=== PATIENT | female | born 1945 | race Caucasian/White ===

== ENCOUNTER 2022-01-14 08:52 | Day surgery (SDC) | payer MEDICARE ==
[2022-01-12 14:25] VITALS: BMI 31.8
--- NOTE | 2022-01-14 07:46 | P.GSHP ---
History of Present Illness H&P Date: 01/14/22 CHIEF COMPLAINT: GERD HISTORY OF PRESENT ILLNESS: The patient is a 76-year-old female who presents reports gastroesophageal reflux disease. Upper endoscopy was offered for further evaluation and management. PAST MEDICAL HISTORY: Please see list. PAST SURGICAL HISTORY: Please see list. MEDICATIONS: Please see list. ALLERGIES: Please see list. SOCIAL HISTORY: No illicit drug use FAMILY HISTORY: No reports of Crohn disease or ulcerative colitis. REVIEW OF ORGAN SYSTEMS: CONSTITUTIONAL: No reports of fevers or chills. GI: Denies any blood in stools or constipation. PHYSICAL EXAM: VITAL SIGNS: Stable GENERAL: Well-developed and pleasant in no acute distress. HEENT: No scleral icterus. Extraocular movements grossly intact. Moist buccal mucosa. NECK: Supple without lymphadenopathy. CHEST: Unlabored respirations. Equal bilateral excursions. CARDIOVASCULAR: Regular rate and rhythm. Distal 2+ pulses. ABDOMEN: Soft, nondistended. MUSCULOSKELETAL: No clubbing, cyanosis, or edema. ASSESSMENT: 1. Gastroesophageal reflux disease PLAN: 1. Recommend proceeding with an upper endoscopy Past Medical History Past Medical History: Hypertension, Pulmonary Embolus (PE) Additional Past Medical History / Comment(s): HAS BEEN HAVING PROBLEMS WITH FOOD GETTING STUCK, PE X 2, HAD AN EPISODE OF IRREG. HEART RATE-ON ELIQUIS History of Any Multi-Drug Resistant Organisms: None Reported Past Surgical History: Appendectomy, Bariatric Surgery, Cholecystectomy, Orthopedic Surgery, Tonsillectomy Additional Past Surgical History / Comment(s): thoracotomy for a granuloma REMOVED LOWER LOBE AND 1/2 OF 2ND LOBE REMOVED 1965, , oopherectomy on one side, uterine reconstruction, ruptured cyst in fallopian tube, trapezius repair, GASTRIC BYPASS 8 YEARS AGO, LT JARQUIN TUMOR REMOVED-BENIGN, RT BUNIONECTOMY, COLONOSCOPY, EGD Past Anesthesia/Blood Transfusion Reactions: No Reported Reaction Smoking Status: Never smoker - Past Family History Mother Family Medical History: No Reported History Father Family Medical History: Cancer Sister(s) Family Medical History: Cancer Medications and Allergies Home Medications Medication Instructions Recorded Confirmed Type Carvedilol [Coreg] 50 mg PO BID 03/31/14 01/12/22 History Cetirizine HCl [Zyrtec] 10 mg PO DAILY PRN 03/31/14 01/12/22 History Losartan [Cozaar] 100 mg PO DAILY 03/31/14 01/12/22 History amLODIPine BESYLATE [Norvasc] 10 mg PO DAILY 03/31/14 01/12/22 History ALPRAZolam [Xanax] 1.5 mg PO HS 01/12/22 01/12/22 History Acetaminophen [Tylenol Arthritis] 650 mg PO DAILY PRN 01/12/22 01/12/22 History Apixaban [Eliquis] 5 mg PO BID 01/12/22 01/12/22 History Cholecalciferol [Vitamin D3 (25 50 mcg PO DAILY 01/12/22 01/12/22 History Mcg = 1000 Iu)] Cyanocobalamin (Vitamin B-12) 1,000 mcg PO DAILY 01/12/22 01/12/22 History [Vitamin B-12] Cyclobenzaprine [Flexeril] 10 mg PO DAILY PRN 01/12/22 01/12/22 History Dicyclomine [Bentyl] 10 mg PO DAILY PRN 01/12/22 01/12/22 History Lidocaine 5% Oint [Xylocaine 5% 1 applic TOPICAL DAILY PRN 01/12/22 01/12/22 History Oint] Loperamide [Imodium] 2 mg PO QID PRN 01/12/22 01/12/22 History Pedi Multivit No.25/Folic Acid 1 tab PO DAILY 01/12/22 01/12/22 History [Flintstones Multivit Chew Tab] Simethicone [Gas-X] 125 mg PO DAILY 01/12/22 01/12/22 History Vitamin B Complex 1 each PO DAILY 01/12/22 01/12/22 History buPROPion HCL [Wellbutrin XL] 150 mg PO DAILY 01/12/22 01/12/22 History Allergies Allergy/AdvReac Type Severity Reaction Status Date / Time Iodinated Contrast Media Allergy FACIAL Verified 01/12/22 15:32 SWELLING meperidine HCl [From Demerol] Allergy Anaphylaxis Verified 01/12/22 15:32 erythromycin base AdvReac Nausea & Verified 01/12/22 15:32 [Erythromycin Base] Vomiting & Diarrhea ketorolac tromethamine AdvReac Nausea & Verified 01/12/22 15:32 [From Toradol] Vomiting & Diarrhea levofloxacin [From Levaquin] AdvReac RUPTURED Verified 01/12/22 15:32 ACHILLES TENDON Sulfa (Sulfonamide AdvReac Unknown Verified 01/12/22 15:32 Antibiotics) Childhood
[~2022-01-14 08:52] MED LIST: LACTATED RINGERS 1,000 ML IV SCH
[2022-01-14 09:32] VITALS: TEMP 97.1
[2022-01-14] MEDS ORDERED: LIDOCAINE 1% (10MG/ML) FOR IV START INTRADERMA ONE (09:39)
[2022-01-14] MEDS ORDERED: LIDOCAINE 2% INJ 20 MG/ML (2 ML VIAL) ONE (10:15)
[2022-01-14] MEDS ORDERED: PROPOFOL 10 MG/ML 20 ML VIAL IV ONE (10:15)
--- NOTE | 2022-01-14 10:46 | P.PCN ---
Date of Procedure: 01/14/22 Description of Procedure: PREOPERATIVE DIAGNOSIS: Dysphagia. s/p Osfia-en-y gastric bypass. Nausea with vomiting. Morbid obesity. POSTOPERATIVE DIAGNOSIS: Dysphagia. s/p Sofia-en-y gastric bypass. Nausea with vomiting. Morbid obesity. Gastrojejunal stricture without chronic ulcer without perforation OPERATION: Esophagogastrojejunoscopy with balloon dilatation from 12 to 20 mm. SURGEON: Neelam Hernandez MD ANESTHESIA: MAC. INDICATIONS: The patient is a 76-year-old female who presents with a history of dysphagia, gastric bypass including vomiting. Benefits and risks of the procedure were described. Informed consent was obtained. DESCRIPTION: The patient was brought into the endoscopy suite and laid in the left lateral decubitus position. After a timeout was confirmed, the procedure was initiated. An Olympus gastroscope was passed along the posterior oropharynx down to the distal esophagus where the squamocolumnar junction was unremarkable. The gastric pouch was entered. A gastrojejunal stricture of 12 mm was found as the adult gastroscope was 9.5 mm in size. A LocalMed balloon dilator was placed through the scope. Final insufflation up to 20 mm was performed with a total of 2 minutes. The scope was advanced up to 60 cm from the incisors into the [place] limb. The mucosa of the gastrojejunal anastomosis was intact. No chronic gastrojejunal marginal ulcer was encountered. No full-thickness injury was encountered. The GI tract was desufflated. The patient tolerated the procedure well. FINDINGS: Squamocolumnar junction at 37 cm. LA grade B erosive esophagitis Stricture of approximately 12 mm encountered. No chronic gastrojejunal ulceration encountered. Successful balloon dilatation to 20 mm. Diaphragmatic hiatus at 40 cm. Gastric pouch 3 cm. RECOMMENDATIONS: Start omeprazole of at least 2 weeks. Plan - Discharge Summary Discharge Rx Participant: No New Discharge Prescriptions: New Omeprazole [PriLOSEC] 40 mg PO DAILY #14 cap Continue amLODIPine BESYLATE [Norvasc] 10 mg PO DAILY Losartan [Cozaar] 100 mg PO DAILY Cetirizine HCl [Zyrtec] 10 mg PO DAILY PRN PRN Reason: Allergic Reaction Carvedilol [Coreg] 50 mg PO BID Cyanocobalamin (Vitamin B-12) [Vitamin B-12] 1,000 mcg PO DAILY Lidocaine 5% Oint [Xylocaine 5% Oint] 1 applic TOPICAL DAILY PRN PRN Reason: Pain Pedi Multivit No.25/Folic Acid [Flintstones Multivit Chew Tab] 1 tab PO DAILY Simethicone [Gas-X] 125 mg PO DAILY Vitamin B Complex 1 each PO DAILY Acetaminophen [Tylenol Arthritis] 650 mg PO DAILY PRN PRN Reason: Pain ALPRAZolam [Xanax] 1.5 mg PO HS Apixaban [Eliquis] 5 mg PO BID buPROPion HCL [Wellbutrin XL] 150 mg PO DAILY Cholecalciferol [Vitamin D3 (25 Mcg = 1000 Iu)] 50 mcg PO DAILY Cyclobenzaprine [Flexeril] 10 mg PO DAILY PRN PRN Reason: Spasms Dicyclomine [Bentyl] 10 mg PO DAILY PRN PRN Reason: CRAMPING Loperamide [Imodium] 2 mg PO QID PRN PRN Reason: Diarrhea Discharge Medication List Carvedilol [Coreg] 50 mg PO BID 03/31/14 [History] Cetirizine HCl [Zyrtec] 10 mg PO DAILY PRN 03/31/14 [History] Losartan [Cozaar] 100 mg PO DAILY 03/31/14 [History] amLODIPine BESYLATE [Norvasc] 10 mg PO DAILY 03/31/14 [History] ALPRAZolam [Xanax] 1.5 mg PO HS 01/12/22 [History] Acetaminophen [Tylenol Arthritis] 650 mg PO DAILY PRN 01/12/22 [History] Apixaban [Eliquis] 5 mg PO BID 01/12/22 [History] Cholecalciferol [Vitamin D3 (25 Mcg = 1000 Iu)] 50 mcg PO DAILY 01/12/22 [History] Cyanocobalamin (Vitamin B-12) [Vitamin B-12] 1,000 mcg PO DAILY 01/12/22 [History] Cyclobenzaprine [Flexeril] 10 mg PO DAILY PRN 01/12/22 [History] Dicyclomine [Bentyl] 10 mg PO DAILY PRN 01/12/22 [History] Lidocaine 5% Oint [Xylocaine 5% Oint] 1 applic TOPICAL DAILY PRN 01/12/22 [History] Loperamide [Imodium] 2 mg PO QID PRN 01/12/22 [History] Pedi Multivit No.25/Folic Acid [Flintstones Multivit Chew Tab] 1 tab PO DAILY 01/12/22 [History] Simethicone [Gas-X] 125 mg PO DAILY 01/12/22 [History] Vitamin B Complex 1 each PO DAILY 01/12/22 [History] buPROPion HCL [Wellbutrin XL] 150 mg PO DAILY 01/12/22 [History] Omeprazole [PriLOSEC] 40 mg PO DAILY #14 cap 01/14/22 [Rx] Follow up Appointment(s)/Referral(s): Neelam Hernandez MD [STAFF PHYSICIAN] - 02/02/22 Patient Instructions/Handouts: Esophageal Dilation (DC) Activity/Diet/Wound Care/Special Instructions: START BLOOD THINNER ON TUESDAY TO REDUCE RISK OF BLEEDING Discharge Disposition: HOME SELF-CARE
[2022-01-14 10:48] VITALS: RESP 16
[2022-01-14 11:00] VITALS: BP 137/76; PULSE 57
== END 2022-01-14 11:14 | disposition home or self-care (01) ==
LOC: ORWHC2ENDO 08:52
PROVIDERS: ATTEND Surgery Plastic and Reconstructive Surgery
DX: K95.89 Other complications of other bariatric procedure (principal); K21.00 Gastro-esophageal reflux disease with esophagitis, without bleeding; R13.10 Dysphagia, unspecified; I10 Essential (primary) hypertension; E66.01 Morbid (severe) obesity due to excess calories; Z68.35 Body mass index [BMI] 35.0-35.9, adult; Z98.84 Bariatric surgery status; Z86.711 Personal history of pulmonary embolism; Z79.01 Long term (current) use of anticoagulants; Z79.899 Other long term (current) drug therapy; Z91.041 Radiographic dye allergy status; Z88.1 Allergy status to other antibiotic agents; Z88.5 Allergy status to narcotic agent; Z88.2 Allergy status to sulfonamides; Z90.49 Acquired absence of other specified parts of digestive tract; Z98.890 Other specified postprocedural states; Z90.89 Acquired absence of other organs; Z90.2 Acquired absence of lung [part of]; Z90.721 Acquired absence of ovaries, unilateral; Z80.9 Family history of malignant neoplasm, unspecified
CPT/HCPCS: 43245; J2704; J2001; C1726; 43249

== ENCOUNTER 2022-03-17 07:15 | Day surgery (SDC) | payer MEDICARE ==
[2022-03-16 10:07] VITALS: BMI 33.3
--- NOTE | 2022-03-17 06:16 | P.GSHP ---
History of Present Illness H&P Date: 03/17/22 CHIEF COMPLAINT: Esophageal stricture HISTORY OF PRESENT ILLNESS: The patient is a 76-year-old female who presents reports dysphagia. Upper endoscopy was offered for further evaluation and management. PAST MEDICAL HISTORY: Please see list. PAST SURGICAL HISTORY: Please see list. MEDICATIONS: Please see list. ALLERGIES: Please see list. SOCIAL HISTORY: No illicit drug use FAMILY HISTORY: No reports of Crohn disease or ulcerative colitis. REVIEW OF ORGAN SYSTEMS: CONSTITUTIONAL: No reports of fevers or chills. GI: Denies any blood in stools or constipation. PHYSICAL EXAM: VITAL SIGNS: Stable GENERAL: Well-developed and pleasant in no acute distress. HEENT: No scleral icterus. Extraocular movements grossly intact. Moist buccal mucosa. NECK: Supple without lymphadenopathy. CHEST: Unlabored respirations. Equal bilateral excursions. CARDIOVASCULAR: Regular rate and rhythm. Distal 2+ pulses. ABDOMEN: Soft, nondistended. MUSCULOSKELETAL: No clubbing, cyanosis, or edema. ASSESSMENT: 1. Esophageal stricture PLAN: 1. Recommend proceeding with an upper endoscopy with rigid dilators. Past Medical History Past Medical History: Hypertension, Pulmonary Embolus (PE) Additional Past Medical History / Comment(s): HAD AN EPISODE OF IRREG. HEART RATE THAT WAS ATRIAL AND VENTRICULAR-HAS NOT HAPPENED AGAIN. SARCOIDOSIS History of Any Multi-Drug Resistant Organisms: None Reported Past Surgical History: Appendectomy, Bariatric Surgery, Cholecystectomy, Heart Catheterization, Orthopedic Surgery, Tonsillectomy Additional Past Surgical History / Comment(s): thoracotomy for a granuloma REMOVED RIGHT LOWER LOBE AND 1/2 OF 2ND LOBE REMOVED 1965-ENDED UP BEING SARCOIDOSIS, oopherectomy on one side ruptured cyst, uterine reconstruction due to fibroids, trapezius repair, LT JARQUIN TUMOR REMOVED-BENIGN, RT BUNIONECTOMY, right shoulder surgery Past Anesthesia/Blood Transfusion Reactions: No Reported Reaction Additional Psychological History / Comment(s): September 2021, situational anxiety at times Smoking Status: Never smoker Past Alcohol Use History: None Reported Past Drug Use History: None Reported - Past Family History Mother Family Medical History: No Reported History Father Family Medical History: Cancer Additional Family Medical History / Comment(s): prostate Sister(s) Family Medical History: Cancer Additional Family Medical History / Comment(s): thought she had cancer due to major swelling on her side but ended up being benign Daughter(s) Family Medical History: Cancer Additional Family Medical History / Comment(s): uterine Medications and Allergies Home Medications Medication Instructions Recorded Confirmed Type Carvedilol [Coreg] 50 mg PO BID 03/31/14 03/16/22 History Cetirizine HCl [Zyrtec] 10 mg PO DAILY 03/31/14 03/16/22 History Losartan [Cozaar] 100 mg PO DAILY 03/31/14 03/16/22 History amLODIPine BESYLATE [Norvasc] 10 mg PO DAILY 03/31/14 03/16/22 History ALPRAZolam [Xanax] 0.5 mg PO HS 01/12/22 03/16/22 History Acetaminophen [Tylenol Arthritis] 650 mg PO DAILY PRN 01/12/22 03/16/22 History Apixaban [Eliquis] 5 mg PO BID 01/12/22 03/16/22 History Cholecalciferol [Vitamin D3 (25 50 mcg PO DAILY 01/12/22 03/16/22 History Mcg = 1000 Iu)] Cyanocobalamin (Vitamin B-12) 1,000 mcg PO DAILY 01/12/22 03/16/22 History [Vitamin B-12] Cyclobenzaprine [Flexeril] 10 mg PO DAILY PRN 01/12/22 03/16/22 History Dicyclomine [Bentyl] 10 mg PO DAILY PRN 01/12/22 03/16/22 History Lidocaine 5% Oint [Xylocaine 5% 1 applic TOPICAL DAILY PRN 01/12/22 03/16/22 History Oint] Loperamide [Imodium] 2 mg PO QID PRN 01/12/22 03/16/22 History Pedi Multivit No.25/Folic Acid 1 tab PO DAILY 01/12/22 03/16/22 History [Flintstones Multivit Chew Tab] Simethicone [Gas-X] 125 mg PO DAILY PRN 01/12/22 03/16/22 History Vitamin B Complex 1 each PO DAILY 01/12/22 03/16/22 History buPROPion HCL [Wellbutrin XL] 150 mg PO DAILY 01/12/22 03/16/22 History Hydrocodone/Acetaminophen 1 tab PO Q6HR PRN 03/16/22 03/16/22 History [Hydrocodone/Acetaminophen 5-325] Allergies Allergy/AdvReac Type Severity Reaction Status Date / Time Iodinated Contrast Media Allergy FACIAL Verified 03/16/22 09:23 SWELLING meperidine HCl [From Demerol] Allergy Anaphylaxis Verified 03/16/22 09:23 Sulfa (Sulfonamide Allergy Unknown Verified 03/16/22 09:23 Antibiotics) Childhood erythromycin base AdvReac Nausea & Verified 03/16/22 09:23 [Erythromycin Base] Vomiting & Diarrhea ketorolac tromethamine AdvReac Nausea & Verified 03/16/22 09:23 [From Toradol] Vomiting & Diarrhea levofloxacin [From Levaquin] AdvReac RUPTURED Verified 03/16/22 09:23 ACHILLES TENDON
[2022-03-17 07:52] VITALS: TEMP 97.9
[2022-03-17] MEDS ORDERED: LIDOCAINE 1% (10MG/ML) FOR IV START INTRADERMA ONE (07:56)
[2022-03-17] MEDS ORDERED: LIDOCAINE 2% INJ 20 MG/ML (2 ML VIAL) ONE (08:07)
[2022-03-17] MEDS ORDERED: PROPOFOL 10 MG/ML 20 ML VIAL IV ONE (08:07)
--- NOTE | 2022-03-17 08:41 | P.PCN ---
Date of Procedure: 03/17/22 Description of Procedure: PREOPERATIVE DIAGNOSIS: Dysphagia. Nausea with vomiting. POSTOPERATIVE DIAGNOSIS: Dysphagia. 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 INDICATIONS: The patient is a 76-year-old female who presents with a history of dysphagia, including nausea and vomiting. Benefits and risks of the procedure were described. Informed consent was obtained. DESCRIPTION: The patient was brought into the endoscopy suite and laid in the left lateral decubitus position. After a timeout was confirmed, the procedure was initiated. An Olympus gastroscope was passed along the posterior oropharynx down to the distal esophagus where the squamocolumnar junction was unremarkable. Moderate tertiary contractions consistent with presbyesophagus was found. Her mouth was small requiring digital retraction. The gastric pouch was entered. A gastrojejunal stricture of 15 mm was found as the adult gastroscope was 9.5 mm in size. Attention was brought to the upper esophageal stenosis. The bite block was removed and mouth was opened with fingers. A rigid dilator, 51 [place] was placed over a guidewire to 45 cm from the incisors and left for 2 minutes after exchanging the scope. A Hita balloon dilator was placed through the scope. The scope was reentered for balloon dilation of the gastrojejunal anastomosis. Final insufflation from 15 to 20 mm was performed with a total of 2 minutes. The scope was advanced up to 60 cm from the incisors into the Sofia limb. The mucosa of the gastrojejunal anastomosis was intact. No chronic gastrojejunal marginal ulcer was encountered. No full-thickness injury was encountered. The GI tract was desufflated. The patient tolerated the procedure well. FINDINGS: Squamocolumnar junction unremarkable at 37 cm. Stricture of approximately 15 mm encountered. Moderate to severe tertiary contractions for presbyesophagus Rigid dilation of upper esophageal sphincter, 51-Par[place] No chronic gastrojejunal ulceration encountered. Successful balloon dilatation to 20 mm. RECOMMENDATIONS: Recommend blenderized diet due to combined presbyesophagus and esophageal stenosis Upper endoscopy as needed. Plan - Discharge Summary Discharge Rx Participant: No New Discharge Prescriptions: Continue amLODIPine BESYLATE [Norvasc] 10 mg PO DAILY Losartan [Cozaar] 100 mg PO DAILY Cetirizine HCl [Zyrtec] 10 mg PO DAILY Carvedilol [Coreg] 50 mg PO BID Cyanocobalamin (Vitamin B-12) [Vitamin B-12] 1,000 mcg PO DAILY Lidocaine 5% Oint [Xylocaine 5% Oint] 1 applic TOPICAL DAILY PRN PRN Reason: Pain Pedi Multivit No.25/Folic Acid [Flintstones Multivit Chew Tab] 1 tab PO DAILY Simethicone [Gas-X] 125 mg PO DAILY PRN PRN Reason: Indigestion Vitamin B Complex 1 each PO DAILY Acetaminophen [Tylenol Arthritis] 650 mg PO DAILY PRN PRN Reason: Pain ALPRAZolam [Xanax] 0.5 mg PO HS Apixaban [Eliquis] 5 mg PO BID buPROPion HCL [Wellbutrin XL] 150 mg PO DAILY Cholecalciferol [Vitamin D3 (25 Mcg = 1000 Iu)] 50 mcg PO DAILY Cyclobenzaprine [Flexeril] 10 mg PO DAILY PRN PRN Reason: Spasms Dicyclomine [Bentyl] 10 mg PO DAILY PRN PRN Reason: CRAMPING Loperamide [Imodium] 2 mg PO QID PRN PRN Reason: Diarrhea Hydrocodone/Acetaminophen [Hydrocodone/Acetaminophen 5-325] 1 tab PO Q6HR PRN PRN Reason: Pain Discharge Medication List Carvedilol [Coreg] 50 mg PO BID 03/31/14 [History] Cetirizine HCl [Zyrtec] 10 mg PO DAILY 03/31/14 [History] Losartan [Cozaar] 100 mg PO DAILY 03/31/14 [History] amLODIPine BESYLATE [Norvasc] 10 mg PO DAILY 03/31/14 [History] ALPRAZolam [Xanax] 0.5 mg PO HS 01/12/22 [History] Acetaminophen [Tylenol Arthritis] 650 mg PO DAILY PRN 01/12/22 [History] Apixaban [Eliquis] 5 mg PO BID 01/12/22 [History] Cholecalciferol [Vitamin D3 (25 Mcg = 1000 Iu)] 50 mcg PO DAILY 01/12/22 [History] Cyanocobalamin (Vitamin B-12) [Vitamin B-12] 1,000 mcg PO DAILY 01/12/22 [History] Cyclobenzaprine [Flexeril] 10 mg PO DAILY PRN 01/12/22 [History] Dicyclomine [Bentyl] 10 mg PO DAILY PRN 01/12/22 [History] Lidocaine 5% Oint [Xylocaine 5% Oint] 1 applic TOPICAL DAILY PRN 01/12/22 [History] Loperamide [Imodium] 2 mg PO QID PRN 01/12/22 [History] Pedi Multivit No.25/Folic Acid [Flintstones Multivit Chew Tab] 1 tab PO DAILY 01/12/22 [History] Simethicone [Gas-X] 125 mg PO DAILY PRN 01/12/22 [History] Vitamin B Complex 1 each PO DAILY 01/12/22 [History] buPROPion HCL [Wellbutrin XL] 150 mg PO DAILY 01/12/22 [History] Hydrocodone/Acetaminophen [Hydrocodone/Acetaminophen 5-325] 1 tab PO Q6HR PRN 03/16/22 [History] Follow up Appointment(s)/Referral(s): Neelam Hernandez MD [STAFF PHYSICIAN] - 04/06/22 Patient Instructions/Handouts: Esophageal Dilation (DC), Dysphagia (ED), Esophageal Spasm (GEN), Complete Blenderized Diet (DC) Activity/Diet/Wound Care/Special Instructions: Start blood thinner today Recommend soft food diet. Avoid eating tough meats, roast beef, steak, pork, ham Discharge Disposition: HOME SELF-CARE
[2022-03-17 08:52] VITALS: BP 137/74; PULSE 58; RESP 16
== END 2022-03-17 09:22 | disposition home or self-care (01) ==
LOC: ORWHC2ENDO 07:15
PROVIDERS: ATTEND Surgery Plastic and Reconstructive Surgery
DX: K95.89 Other complications of other bariatric procedure (principal); K22.2 Esophageal obstruction; I10 Essential (primary) hypertension; Z86.711 Personal history of pulmonary embolism; D86.9 Sarcoidosis, unspecified; Z90.49 Acquired absence of other specified parts of digestive tract; Z98.890 Other specified postprocedural states; Z90.721 Acquired absence of ovaries, unilateral; F41.9 Anxiety disorder, unspecified; Z80.42 Family history of malignant neoplasm of prostate; Z80.49 Family history of malignant neoplasm of other genital organs; Z79.01 Long term (current) use of anticoagulants; Z79.899 Other long term (current) drug therapy; Z88.5 Allergy status to narcotic agent; Z88.2 Allergy status to sulfonamides; Z88.6 Allergy status to analgesic agent; Z88.1 Allergy status to other antibiotic agents; Z91.041 Radiographic dye allergy status
CPT/HCPCS: 43245; 43249; J2704; J2001; C1726

== ENCOUNTER 2024-03-07 22:33 | Observation (INO) | payer MEDICARE ==
[2024-03-08] MEDS: ACETAMINOPHEN TAB 500 MG TAB PO STA (00:10)
--- NOTE | 2024-03-08 00:55 | CT ---
EXAM: CT Head and Maxillofacial Without Intravenous Contrast CLINICAL HISTORY: ITS.REASON CT Reason: fall TECHNIQUE: Axial computed tomography images of the head/brain and face without intravenous contrast. This CT exam was performed using one or more of the following dose reduction techniques: automated exposure control, adjustment of the mA and/or kV according to patient size, and/or use of iterative reconstruction technique. COMPARISON: No relevant prior studies available. FINDINGS: Brain: Unremarkable. No hemorrhage. No significant white matter disease. No edema. Ventricles: Unremarkable. No ventriculomegaly. Bones/joints: Tiny periapical lucencies about tooth# 7 and 8. Hyperostosis frontalis interna. Soft tissues: Moderate soft tissue swelling over the anterior mandible. Sinuses: Unremarkable as visualized. No acute sinusitis. Mastoid air cells: Unremarkable as visualized. No mastoid effusion. Orbits: Unremarkable as visualized. IMPRESSION: Tiny periapical lucencies about tooth numbers 7 and 8, which may represent posttraumatic loosening. Recommend dental consult.
--- NOTE | 2024-03-08 00:55 | XR ---
EXAM: XR Right Wrist Complete, 3 or More Views CLINICAL HISTORY: ITS.REASON XR Reason: fall TECHNIQUE: Frontal, lateral and oblique views of the right wrist. COMPARISON: None FINDINGS: Bones/joints: No displaced fracture or dislocation identified. Severe degenerative change of the right first CMC joint with subluxation. Mild degenerative change of the right first MCP joint and triscaphe joint. No bony lesion. Osteopenia. Soft tissues: Normal. No radiopaque foreign body identified. IMPRESSION: No displaced fracture or dislocation identified.
--- NOTE | 2024-03-08 00:59 | CT ---
EXAM: CT Head Without Intravenous Contrast CLINICAL HISTORY: ITS.REASON CT Reason: fall TECHNIQUE: Axial computed tomography images of the head/brain without intravenous contrast. CTDI is 25.8 mGy and DLP is 704.3 mGy-cm. This CT exam was performed using one or more of the following dose reduction techniques: automated exposure control, adjustment of the mA and/or kV according to patient size, and/or use of iterative reconstruction technique. COMPARISON: No relevant prior studies available. FINDINGS: Brain: Unremarkable. No hemorrhage. No significant white matter disease. No edema. Ventricles: Unremarkable. No ventriculomegaly. Bones/joints: Hyperostosis frontalis interna. No acute fracture. Soft tissues: Unremarkable. Sinuses: Unremarkable as visualized. No acute sinusitis. Mastoid air cells: Unremarkable as visualized. No mastoid effusion. IMPRESSION: No evidence of acute intracranial pathology. EXAM: CT Cervical Spine Without Intravenous Contrast CLINICAL HISTORY: ITS.REASON CT Reason: fall TECHNIQUE: Axial computed tomography images of the cervical spine without intravenous contrast. CTDI is 16.1 mGy and DLP is 451.3 mGy-cm. This CT exam was performed using one or more of the following dose reduction techniques: automated exposure control, adjustment of the mA and/or kV according to patient size, and/or use of iterative reconstruction technique. COMPARISON: No relevant prior studies available. FINDINGS: Remote fracture deformity of the posterior right fourth rib. Vertebrae: Unremarkable. No acute fracture. Discs/spinal canal/neural foramina: No acute findings. No spinal canal stenosis. Soft tissues: Bilateral thyroid nodules. Large noninfiltrating lipoma in the left posterior neck and upper back. IMPRESSION: No evidence of acute cervical spine pathology.
--- NOTE | 2024-03-08 01:02 | XR ---
EXAM: XR Chest, 2 Views CLINICAL HISTORY: ITS.REASON XR Reason: fall TECHNIQUE: Frontal and lateral views of the chest. COMPARISON: Prior chest x-ray from March 31, 2014. FINDINGS: Lungs: Unremarkable. No consolidation. Pleural space: Unremarkable. No pneumothorax. Heart: Mild cardiomegaly. Mediastinum: Unremarkable. Normal mediastinal contour. Bones/joints: There is mild wedging of the distal thoracic spine vertebrae, which may be physiologic. No acute fracture. IMPRESSION: No evidence of acute thoracic injury. If there is continuing clinical concern, a CT scan may be of benefit for further evaluation.
[2024-03-08] MEDS: MORPHINE SULFATE 2 MG/ML SYRINGE IM STA (01:27)
[2024-03-08] MEDS: traMADol 50 MG TAB PO STA (01:32)
[2024-03-08] MEDS: LIDOCAINE 4% PATCH TOPICAL ONE (01:33)
[2024-03-08] MEDS ORDERED: NALOXONE 0.4 MG/ML 1 ML VIAL IV PRN (02:53)
[2024-03-08] MEDS ORDERED: ACETAMINOPHEN TAB 325 MG TAB PO PRN (02:53)
--- NOTE | 2024-03-08 02:55 | ED ---
Fall HPI - General Chief Complaint: Fall Stated Complaint: Fall Time Seen by Provider: 03/07/24 22:52 Source: EMS Mode of arrival: EMS - History of Present Illness Initial Comments: 78-year-old female presenting with chief complaint of fall. Patient was bringing in groceries from her car when she stepped into her garage there was uneven ground that caused her to fall forward hitting her forehead. She had no loss of consciousness but. She is on Eliquis for A-fib and previous DVT. She is complaining of right wrist pain. At this time she is also complaining of a headache. She denies any neck pain. No numbness or tingling. No vision or hearing changes. No dizziness. She has some soreness to the chest from falling forward. No difficulty breathing. No abdominal pain. - Related Data Home Medications Medication Instructions Recorded Confirmed Cetirizine HCl [Zyrtec] 10 mg PO DAILY 03/31/14 03/08/24 amLODIPine BESYLATE [Norvasc] 10 mg PO DAILY 03/31/14 03/08/24 Apixaban [Eliquis] 5 mg PO BID 01/12/22 03/08/24 Cholecalciferol [Vitamin D3 (25 50 mcg PO DAILY 01/12/22 03/08/24 Mcg = 1000 Iu)] Cyanocobalamin (Vitamin B-12) 1,000 mcg PO DAILY 01/12/22 03/08/24 [Vitamin B-12] Loperamide [Imodium] 2 mg PO QID PRN 01/12/22 03/08/24 Vitamin B Complex 1 cap PO HS 01/12/22 03/08/24 buPROPion HCL [Wellbutrin XL] 150 mg PO DAILY 01/12/22 03/08/24 ALPRAZolam [Xanax] 0.25 - 0.5 mg PO TID PRN 03/08/24 03/08/24 Diphenoxylate HCl/Atropine 1 - 2 tab PO QID PRN 03/08/24 03/08/24 [Lomotil 2.5-0.025 mg Tablet] HYDROcodone/APAP 10-325MG [[place] 1 tab PO TID PRN 03/08/24 03/08/24 10-325] Losartan Potassium [Cozaar] 100 mg PO HS 03/08/24 03/08/24 Multivit with Calcium,Iron,Min 1 tab PO DAILY 03/08/24 03/08/24 [Women's Multivitamin] Spironolactone 25 mg PO DAILY PRN 03/08/24 03/08/24 Tolterodine ER [Detrol LA] 4 mg PO DAILY 03/08/24 03/08/24 carvediloL [Coreg] 12.5 mg PO BID 03/08/24 03/08/24 Previous Rx's Medication Instructions Recorded Cyclobenzaprine [Flexeril] 5 - 10 mg PO TID PRN #15 tab 03/10/24 Lidocaine 4% Patch 1 patch TOPICAL DAILY@1800 #7 patch 03/10/24 Allergies Allergy/AdvReac Type Severity Reaction Status Date / Time Iodinated Contrast Media Allergy FACIAL Verified 03/08/24 09:59 SWELLING meperidine HCl [From Demerol] Allergy Anaphylaxis Verified 03/08/24 09:59 morphine Allergy Unknown Verified 03/08/24 09:59 Childhood Sulfa (Sulfonamide Allergy Unknown Verified 03/08/24 09:59 Antibiotics) Childhood erythromycin base AdvReac Nausea & Verified 03/08/24 09:59 [Erythromycin Base] Vomiting & Diarrhea ketorolac tromethamine AdvReac Nausea & Verified 03/08/24 09:59 [From Toradol] Vomiting & Diarrhea levofloxacin [From Levaquin] AdvReac RUPTURED Verified 03/08/24 09:59 ACHILLES TENDON sulfamethoxazole AdvReac Confusion/n Verified 03/08/24 09:59 [From Bactrim] ausea/vomit ing trimethoprim [From Bactrim] AdvReac Confusion/n Verified 03/08/24 09:59 ausea/vomit ing Review of Systems ROS Statement: Those systems with pertinent positive or pertinent negative responses have been documented in the HPI. ROS Other: All systems not noted in ROS Statement are negative. Past Medical History Past Medical History: Hypertension, Pulmonary Embolus (PE) Additional Past Medical History / Comment(s): HAD AN EPISODE OF IRREG. HEART RATE THAT WAS ATRIAL AND VENTRICULAR-HAS NOT HAPPENED AGAIN. SARCOIDOSIS History of Any Multi-Drug Resistant Organisms: None Reported Past Surgical History: Appendectomy, Bariatric Surgery, Cholecystectomy, Heart Catheterization, Orthopedic Surgery, Tonsillectomy Additional Past Surgical History / Comment(s): thoracotomy for a granuloma REMOVED RIGHT LOWER LOBE AND 1/2 OF 2ND LOBE REMOVED 1966-ENDED UP BEING SARCOIDOSIS, oopherectomy on one side ruptured cyst, uterine reconstruction due to fibroids, trapezius repair, LT JARQUIN TUMOR REMOVED-BENIGN, RT BUNIONECTOMY, right shoulder surgery Past Anesthesia/Blood Transfusion Reactions: No Reported Reaction Past Psychological History: No Psychological Hx Reported Smoking Status: Never smoker Past Alcohol Use History: None Reported Past Drug Use History: None Reported - Past Family History Mother Family Medical History: No Reported History Father Family Medical History: Cancer Additional Family Medical History / Comment(s): prostate Sister(s) Family Medical History: Cancer Additional Family Medical History / Comment(s): thought she had cancer due to major swelling on her side but ended up being benign Daughter(s) Family Medical History: Cancer Additional Family Medical History / Comment(s): uterine General Exam General appearance: alert, in no apparent distress Head exam: Present: normocephalic Eye exam: Present: normal appearance, PERRL, EOMI Neck exam: Present: normal inspection, full ROM Respiratory exam: Absent: respiratory distress Cardiovascular Exam: Present: regular rate Right Forearm Wrist exam: Present: tenderness over anatomical snuff box Hand Wrist exam: Present: normal inspection, tenderness, swelling. Absent: full ROM Neurological exam: Present: alert, oriented X3 Expanded Patient oriented to: Present: person, place, time Speech: Present: fluid speech Cranial nerves: EOM's Intact: Normal Eye Response: (4) open spontaneously Motor Response: (6) obeys commands Verbal Response: (5) oriented Noman Total: 15 Psychiatric exam: Present: normal affect, normal mood Skin exam: Present: warm, dry, other (Bruising to the chin) Course Vital Signs 03/07/24 03/08/24 03/08/24 22:42 02:34 03:45 Temperature 98.2 F 98.3 F Pulse Rate 73 93 85 Respiratory 18 18 18 Rate Blood Pressure 181/87 188/87 140/73 O2 Sat by Pulse 97 97 94 L Oximetry 03/08/24 03/08/24 03/08/24 06:14 08:35 10:02 Temperature 98.4 F 98.1 F Pulse Rate 65 65 59 L Respiratory 18 16 17 Rate Blood Pressure 147/60 131/62 140/73 O2 Sat by Pulse 95 96 96 Oximetry 0803/08/24 03/08/24 12:01 12:33 13:56 Temperature 97.8 F Pulse Rate 64 76 56 L Respiratory 17 18 18 Rate Blood Pressure 158/83 163/80 138/72 O2 Sat by Pulse 95 97 95 Oximetry 03/08/24 03/08/24 03/08/24 17:04 20:34 22:58 Temperature 97.9 F Pulse Rate 63 56 L 73 Respiratory 18 18 18 Rate Blood Pressure 150/80 136/69 149/73 O2 Sat by Pulse 94 L 94 L 94 L Oximetry Medical Decision Making - Medical Decision Making This is a 78-year-old female presenting for evaluation post fall. Patient had a fall from standing, fell forward hitting her head, no loss of consciousness. Patient is on Eliquis. Patient does have bruising to the chin. She is complaining of pain to the right wrist.. She is also having some rib pain. No focal neurological deficits on exam. CT showed no evidence of acute intracr anial pathology. There is no evidence of acute cervical spine pathology. Wrist x-ray shows no displaced fracture or dislocation identified, there is severe degenerative change of the right first CMC joint with subluxation. Mild degenerative change of the right first MCP joint and triscaphe joint. Given that the patient is having tenderness to this area thumb spica splint is applied. Facial bone CT showed tiny periapical lucencies with tooth numbers 7 and 8 which may represent posttraumatic loosening. Recommend dental consult She is given Tylenol tramadol and lidocaine patch for pain. She is educated on all of her imaging findings. She expresses that when she got up to go to the bathro she became dizzy. She also expresses that she would like to stay as an observation in order to let the pain medication take effect and have assistance to the bathroom. I explained to the patient that since she expressed dizziness we should obtain EKG and labs to rule out any other potential causes of her dizziness. Patient expressed hesitancy due to concern regarding a bill for these studies, she immediately pulled out her phone and called her daughter. I stepped out of the room to give the patient some privacy. I later returned to the patient's room and spoke with her daughter on the phone. Her daughter is irate, yelling, and verbally abusing me. She was upset that she waited on the phone to speak with me, which was due to me attending to the care of other patients. I explained to the daughter that in the setting of dizziness, I feel it is the most clinically appropriate decision to rule out any additional causes of the patient's dizziness. The patient's daughter continued to yell on the phone and verbally abused me. Nurse Alessia and charge nurse Kristin came into the room and patient stated that she wanted to speak to Alessia without anyone else in the room, I then left the room. I then called [facility] who is covering for Dr. Jensen, provider on-call accepts admission as an observation. I ordered basic labs and EKG given that the patient will be admitted and also due to her di zziness, nursing staff updates me that the patient is waiting to decide if she will move forward with these tests until she speaks with Dr. Russ. I also ordered as needed pain medication. I discussed this case in detail with my attending Dr. Russ. Was pt. sent in by a medical professional or institution (, PA, CUSTOMER ACCOUNT EXECUTIVE, urgent care, hospital, or fdc...) When possible be specific @ -No Did you speak to anyone other than the patient for history (EMS, parent, family, police, friend...)? What history was obtained from this source @ -No Did you review nursing and triage notes (agree or disagree)? Why? @ -I reviewed and agree with nursing and triage notes Were old charts reviewed (outside hosp., previous admission, EMS record, old EKG, old radiological studies, urgent care reports/EKG's, fdc records)? Report findings @ -No old charts were reviewed Differential Diagnosis (chest pain, altered mental status, abdominal pain women, abdominal pain men, vaginal bleeding, weakness, fever, dyspnea, syncope, headache, dizziness, GI bleed, back pain, seizure, CVA, palpatations, mental health, musculoskeletal)? @ -Differential Musculoskeletal Muscular strain, contusion, ligament sprain, fracture, arthritis, septic arthritis, bursitis, cellulitis, muscle spasm, nerve compression, DVT, arterial occlusion, herpes zoster, electrolyte abnormality, tumor.... This is not meant to be in all inclusive list EKG interpreted by me (3pts min.). @ -As above X-rays interpreted by me (1pt min.). @ -Wrist x-ray shows no displaced fracture or dislocation identified. Chest x- ray shows no evidence of acute thoracic injury. CT interpreted by me (1pt min.). @ -Facial CT shows tiny periapical lucencies about tooth numbers 7 and 8 which may represent posttraumatic loosening. Recommend dental consult. CT of the brain and cervical spine shows no evidence of acute intracranial pathology. No evidence of acute cervical spine pathology. U/S interpreted by me (1pt. min.). @ -None done What testing was considered but not performed or refused? (CT, X-rays, U/S, labs)? Why? @ -None What meds were considered but not given or refused? Why? @ -None Did you discuss the management of the patient with other professionals (professionals i.e. , PA, CUSTOMER ACCOUNT EXECUTIVE, lab, RT, psych nurse, social science instructor, marine insurance claim examiner, teacher, chief data officer, rehabilitation case coordinator)? Give summary @ -Spoke with the [facility] provider on-call who accepted admission Was smoking cessation discussed for >3mins.? @ -No Was critical care preformed (if so, how long)? @ -No Were there social determinants of health that impacted care today? How? (Homelessness, low income, unemployed, alcoholism, drug addiction, transportation, low edu. Level, literacy, decrease access to med. care, custodial, rehab)? @ -No Was there de-escalation of care discussed even if they declined (Discuss DNR or withdrawal of care, Hospice)? DNR status @ -No What co-morbidities impacted this encounter? (DM, HTN, Smoking, COPD, CAD, Cancer, CVA, ARF, Chemo, Hep., AIDS, mental health diagnosis, sleep apnea, morbid obesity)? @ -None Was patient admitted / discharged? Hospital course, mention meds given and route, prescriptions, significant lab abnormalities, going to OR and other pertinent info. @ -Admitted, see above for details Undiagnosed new problem with uncertain prognosis? @ -No Drug Therapy requiring intensive monitoring for toxicity (Heparin, Nitro, Insulin, Cardizem)? @ -No Were any procedures done? @ -No Diagnosis/symptom? @ -Head injury Acute, or Chronic, or Acute on Chronic? @ -Acute Uncomplicated (without systemic symptoms) or Complicated (systemic symptoms)? @ -complicated Side effects of treatment? @ -No Exacerbation, Progression, or Severe Exacerbation? @ -No - Lab Data Result diagrams: 03/10/24 05:01 03/10/24 05:01 Disposition Clinical Impression: Head injury, Metacarpal bone fracture Disposition: ADMITTED IP TO THIS HOSP Condition: Good Time of Disposition: 02:54
[2024-03-08] MEDS: HYDROcodone/APAP 5-325MG 1 EACH TAB PO PRN (05:08)
--- NOTE | 2024-03-08 12:35 | P.HPIM ---
History of Present Illness 78-year-old female came in after a fall and patient had a mechanical fall while she was carrying her groceries patient denied loss of consciousness is also complaining of mild lightheadedness. Pain in the chest when she takes deep breath and deep cage area. Patient has swelling in the right arm for which she has a cast although there is no fracture. Although workup including chest x-ray face CT cervical spine head CT and wrist x-ray are all negative patient also has a small hematoma in the chin area. REVIEW OF SYSTEMS: All other systems are negative except those mentioned in the HPI PHYSICAL EXAMINATION: GENERAL: The patient is alert and oriented x3, not in any acute distress. Well developed, well nourished. HEENT: Pupils are round and equally reacting to light. EOMI. No scleral icterus. No conjunctival pallor. Normocephalic, atraumatic. No pharyngeal erythema. No thyromegaly. CARDIOVASCULAR: S1 and S2 present. No murmurs, rubs, or gallops. PULMONARY: Chest is clear to auscultation, no wheezing or crackles. ABDOMEN: Soft, nontender, nondistended, normoactive bowel sounds. No palpable organomegaly. MUSCULOSKELETAL: No joint swelling or deformity. EXTREMITIES: No cyanosis, clubbing, or pedal edema. Right hand has a cast NEUROLOGICAL: Gross neurological examination did not reveal any focal deficits. SKIN: Bruises and hematoma as mentioned above Assessment and plan -Mechanical fall patient denies any syncopal episode, patient is functional not dependent on ADLs and IADLs. Patient states she has no help at home because of which I will obtain PT and OT evaluation patient did fall and considering his age she can have a slow bleed because of which I will obtain CT of the head tomorrow morning if that is negative patient will be discharged. Will also obtain basic labs as patient is on MARCUS inhibitor and spironolactone which can cause hyperkalemia -History of DVT in the past for which patient is on anticoagulation which will be resumed -Hypertension patient will be resumed on home medications DVT prophylaxis: On anticoagulation Past Medical History Past Medical History: Hypertension, Pulmonary Embolus (PE) Additional Past Medical History / Comment(s): HAD AN EPISODE OF IRREG. HEART RATE THAT WAS ATRIAL AND VENTRICULAR-HAS NOT HAPPENED AGAIN. SARCOIDOSIS History of Any Multi-Drug Resistant Organisms: None Reported Past Surgical History: Appendectomy, Bariatric Surgery, Cholecystectomy, Heart Catheterization, Orthopedic Surgery, Tonsillectomy Additional Past Surgical History / Comment(s): thoracotomy for a granuloma REMOVED RIGHT LOWER LOBE AND 1/2 OF 2ND LOBE REMOVED 1965-ENDED UP BEING SARCOIDOSIS, oopherectomy on one side ruptured cyst, uterine reconstruction due to fibroids, trapezius repair, LT JARQUIN TUMOR REMOVED-BENIGN, RT BUNIONECTOMY, right shoulder surgery Past Anesthesia/Blood Transfusion Reactions: No Reported Reaction Past Psychological History: No Psychological Hx Reported Smoking Status: Never smoker Past Alcohol Use History: None Reported Past Drug Use History: None Reported - Past Family History Mother Family Medical History: No Reported History Father Family Medical History: Cancer Additional Family Medical History / Comment(s): prostate Sister(s) Family Medical History: Cancer Additional Family Medical History / Comment(s): thought she had cancer due to major swelling on her side but ended up being benign Daughter(s) Family Medical History: Cancer Additional Family Medical History / Comment(s): uterine Medications and Allergies Home Medications Medication Instructions Recorded Confirmed Type Cetirizine HCl [Zyrtec] 10 mg PO DAILY 03/31/14 03/08/24 History amLODIPine BESYLATE [Norvasc] 10 mg PO DAILY 03/31/14 03/08/24 History Apixaban [Eliquis] 5 mg PO BID 01/12/22 03/08/24 History Cholecalciferol [Vitamin D3 (25 50 mcg PO DAILY 01/12/22 03/08/24 History Mcg = 1000 Iu)] Cyanocobalamin (Vitamin B-12) 1,000 mcg PO DAILY 01/12/22 03/08/24 History [Vitamin B-12] Cyclobenzaprine [Flexeril] 5 - 10 mg PO TID PRN 01/12/22 03/08/24 History Loperamide [Imodium] 2 mg PO QID PRN 01/12/22 03/08/24 History Vitamin B Complex 1 cap PO HS 01/12/22 03/08/24 History buPROPion HCL [Wellbutrin XL] 150 mg PO DAILY 01/12/22 03/08/24 History ALPRAZolam [Xanax] 0.25 - 0.5 mg PO TID PRN 03/08/24 03/08/24 History Diphenoxylate HCl/Atropine 1 - 2 tab PO QID PRN 03/08/24 03/08/24 History [Lomotil 2.5-0.025 mg Tablet] HYDROcodone/APAP 10-325MG [[place] 1 tab PO TID PRN 03/08/24 03/08/24 History 10-325] Losartan Potassium [Cozaar] 100 mg PO HS 03/08/24 03/08/24 History Multivit with Calcium,Iron,Min 1 tab PO DAILY 03/08/24 03/08/24 History [Women's Multivitamin] Spironolactone 25 mg PO DAILY PRN 03/08/24 03/08/24 History Tolterodine ER [Detrol LA] 4 mg PO DAILY 03/08/24 03/08/24 History carvediloL [Coreg] 12.5 mg PO BID 03/08/24 03/08/24 History Allergies Allergy/AdvReac Type Severity Reaction Status Date / Time Iodinated Contrast Media Allergy FACIAL Verified 03/08/24 09:59 SWELLING meperidine HCl [From Demerol] Allergy Anaphylaxis Verified 03/08/24 09:59 morphine Allergy Unknown Verified 03/08/24 09:59 Childhood Sulfa (Sulfonamide Allergy Unknown Verified 03/08/24 09:59 Antibiotics) Childhood erythromycin base AdvReac Nausea & Verified 03/08/24 09:59 [Erythromycin Base] Vomiting & Diarrhea ketorolac tromethamine AdvReac Nausea & Verified 03/08/24 09:59 [From Toradol] Vomiting & Diarrhea levofloxacin [From Levaquin] AdvReac RUPTURED Verified 03/08/24 09:59 ACHILLES TENDON sulfamethoxazole AdvReac Confusion/n Verified 03/08/24 09:59 [From Bactrim] ausea/vomit ing trimethoprim [From Bactrim] AdvReac Confusion/n Verified 03/08/24 09:59 ausea/vomit ing Physical Exam Vitals: Vital Signs Temp Pulse Resp BP Pulse Ox 03/08/24 12:33 76 18 163/80 97 03/08/24 12:01 97.8 F 64 17 158/83 95 03/08/24 10:02 98.1 F 59 L 17 140/73 96 03/08/24 08:35 98.4 F 65 16 131/62 96 03/08/24 06:14 65 18 147/60 95 03/08/24 03:45 98.3 F 85 18 140/73 94 L 03/08/24 02:34 93 18 188/87 97 03/07/24 22:42 98.2 F 73 18 181/87 97 Intake and Output 03/07/24 03/08/24 03/08/24 22:59 06:59 14:59 Other: Weight 89.811 kg
[2024-03-08] MEDS: carvediloL 12.5 MG TAB PO SCH (12:44)
[2024-03-08] MEDS: traMADol 50 MG TAB PO PRN (16:06)
[2024-03-08 16:14] LABS: Basophils % (A) 1 %; Eosinophils # (A) 0.1 k/uL (0-0.7); Eosinophils % (A) 2 %; HCT 39.7 % (34.0-46.0); HGB 12.9 gm/dL (11.4-16.0); Lymphocytes # (A) 1.1 k/uL (1.0-4.8); Lymphocytes % (A) 15 %; MCH 31.5 pg (25.0-35.0); MCHC 32.6 g/dL (31.0-37.0); MCV 96.8 fL (80.0-100.0); Mean Platelet Volume 8.3; Monocytes # (A) 0.5 k/uL (0-1.0); Monocytes % (A) 6 %; Neutrophils # (A) 5.9 k/uL (1.3-7.7); Neutrophils % (A) 76 %; Platelet Count 279 k/uL (150-450); RBC 4.09 m/uL (3.80-5.40); WBC 7.7 k/uL (3.8-10.6)
[2024-03-08 16:28] LABS: ALT 22 U/L (4-34); AST 39 U/L (14-36); African American GFR (CKD) >90 (>60 ml/min/1.73 sqM); Albumin/Globulin Ratio 1.7; Alkaline Phosphatase 103 U/L (38-126); Anion Gap 7 mmol/L; Blood Urea Nitrogen 19 mg/dL (7-17); Calcium 9.2 mg/dL (8.4-10.2); Carbon Dioxide 22 mmol/L (22-30); Chloride 107 mmol/L (98-107); Globulin 2.4 g/dL; Glucose 96 mg/dL (74-99); Non-African American GFR(CKD) 89 (>60 ml/min/1.73 sqM); Potassium 4.4 mmol/L (3.5-5.1); Sodium 136 mmol/L (137-145); Total Protein 6.4 g/dL (6.3-8.2)
[2024-03-08] MEDS: APIXABAN 5 MG TAB PO SCH (17:03)
[2024-03-08] MEDS: CYCLOBENZAPRINE 5 MG TAB PO SCH (20:58)
[2024-03-08] MEDS: LOSARTAN 50 MG TAB PO SCH (21:23)
[2024-03-09] MEDS: ALPRAZolam 0.25 MG TAB PO PRN (01:09)
--- NOTE | 2024-03-09 07:49 | CT ---
EXAMINATION TYPE: CT brain wo con DATE OF EXAM: 03/09/2024 COMPARISON: 03/07/2024 HISTORY: Fall 03/07 concern for small bleed, on Eliquis CT DLP: [address] of the brain was performed. The ventricles, basal cisterns and sulci overlying the cerebral convexities demonstrate mild enlargem ent. There is no evidence for intracranial hemorrhage or sulcal effacement. There is decreased attenuation about the periventricular white matter and deep white matter of both c erebral hemispheres, compatible with chronic small vessel ischemia. Differential diagnosis does inclu de demyelination. No mass effects are seen.No midline shift. Osseous calvarium is intact. If symptoms persist consider MRI. IMPRESSION: 1. Age related atrophic and chronic small vessel ischemic change without acute intracranial process s een at this time.
[2024-03-09] MEDS: buPROPion XL 150 MG TAB.ER.24H PO SCH (08:52)
[2024-03-09] MEDS: OXYBUTYNIN 10 MG TAB.ER.24 PO SCH (08:52)
[2024-03-09] MEDS: amLODIPine 10 MG TAB PO SCH (08:52)
--- NOTE | 2024-03-09 09:12 | P.CNOR ---
History of Present Illness - [facility] Consult date: 03/09/24 Consult reason: other (Right wrist injury) History of present illness: The patient is a 78-year-old female who presented to the emergency department yesterday after sustaining a fall at home. She states that she was carrying something out of the freezer and fell. She did hit her head and landed on her right hand. She is on Eliquis. Upon evaluation in the emergency delicatessen department manager CT was ordered an x-ray of the right wrist. No bleed or fracture was seen. She was placed in a splint with her fingers included on the right hand. The patient was admitted for further observation and pain control. This morning, patient states that she has severe pain in her right wrist and that the splint is very uncomfortable. Review of Systems Constitutional: Denies chills, Denies fatigue, Denies fever Cardiovascular: Denies chest pain, Denies shortness of breath Respiratory: Denies cough Gastrointestinal: Denies abdominal pain, Denies nausea, Denies vomiting Musculoskeletal: right: hand pain, hand stiffness, hand swelling, wrist pain, wrist stiffness, wrist swelling Past Medical History Past Medical History: Hypertension, Pulmonary Embolus (PE) Additional Past Medical History / Comment(s): HAD AN EPISODE OF IRREG. HEART RATE THAT WAS ATRIAL AND VENTRICULAR-HAS NOT HAPPENED AGAIN. SARCOIDOSIS History of Any Multi-Drug Resistant Organisms: None Reported Past Surgical History: Appendectomy, Bariatric Surgery, Cholecystectomy, Heart Catheterization, Orthopedic Surgery, Tonsillectomy Additional Past Surgical History / Comment(s): thoracotomy for a granuloma REMOVED RIGHT LOWER LOBE AND 1/2 OF 2ND LOBE REMOVED 1965-ENDED UP BEING SARCOIDOSIS, oopherectomy on one side ruptured cyst, uterine reconstruction due to fibroids, trapezius repair, LT JARQUIN TUMOR REMOVED-BENIGN, RT BUNIONECTOMY, right shoulder surgery Past Anesthesia/Blood Transfusion Reactions: No Reported Reaction Past Psychological History: No Psychological Hx Reported Smoking Status: Never smoker Past Alcohol Use History: None Reported Past Drug Use History: None Reported - Past Family History Mother Family Medical History: No Reported History Father Family Medical History: Cancer Additional Family Medical History / Comment(s): prostate Sister(s) Family Medical History: Cancer Additional Family Medical History / Comment(s): thought she had cancer due to major swelling on her side but ended up being benign Daughter(s) Family Medical History: Cancer Additional Family Medical History / Comment(s): uterine Medications and Allergies Home Medications Medication Instructions Recorded Confirmed Type Cetirizine HCl [Zyrtec] 10 mg PO DAILY 03/31/14 03/08/24 History amLODIPine BESYLATE [Norvasc] 10 mg PO DAILY 03/31/14 03/08/24 History Apixaban [Eliquis] 5 mg PO BID 01/12/22 03/08/24 History Cholecalciferol [Vitamin D3 (25 50 mcg PO DAILY 01/12/22 03/08/24 History Mcg = 1000 Iu)] Cyanocobalamin (Vitamin B-12) 1,000 mcg PO DAILY 01/12/22 03/08/24 History [Vitamin B-12] Cyclobenzaprine [Flexeril] 5 - 10 mg PO TID PRN 01/12/22 03/08/24 History Loperamide [Imodium] 2 mg PO QID PRN 01/12/22 03/08/24 History Vitamin B Complex 1 cap PO HS 01/12/22 03/08/24 History buPROPion HCL [Wellbutrin XL] 150 mg PO DAILY 01/12/22 03/08/24 History ALPRAZolam [Xanax] 0.25 - 0.5 mg PO TID PRN 03/08/24 03/08/24 History Diphenoxylate HCl/Atropine 1 - 2 tab PO QID PRN 03/08/24 03/08/24 History [Lomotil 2.5-0.025 mg Tablet] HYDROcodone/APAP 10-325MG [[place] 1 tab PO TID PRN 03/08/24 03/08/24 History 10-325] Losartan Potassium [Cozaar] 100 mg PO HS 03/08/24 03/08/24 History Multivit with Calcium,Iron,Min 1 tab PO DAILY 03/08/24 03/08/24 History [Women's Multivitamin] Spironolactone 25 mg PO DAILY PRN 03/08/24 03/08/24 History Tolterodine ER [Detrol LA] 4 mg PO DAILY 03/08/24 03/08/24 History carvediloL [Coreg] 12.5 mg PO BID 03/08/24 03/08/24 History Allergies Allergy/AdvReac Type Severity Reaction Status Date / Time Iodinated Contrast Media Allergy FACIAL Verified 03/08/24 09:59 SWELLING meperidine HCl [From Demerol] Allergy Anaphylaxis Verified 03/08/24 09:59 morphine Allergy Unknown Verified 03/08/24 09:59 Childhood Sulfa (Sulfonamide Allergy Unknown Verified 03/08/24 09:59 Antibiotics) Childhood erythromycin base AdvReac Nausea & Verified 03/08/24 09:59 [Erythromycin Base] Vomiting & Diarrhea ketorolac tromethamine AdvReac Nausea & Verified 03/08/24 09:59 [From Toradol] Vomiting & Diarrhea levofloxacin [From Levaquin] AdvReac RUPTURED Verified 03/08/24 09:59 ACHILLES TENDON sulfamethoxazole AdvReac Confusion/n Verified 03/08/24 09:59 [From Bactrim] ausea/vomit ing trimethoprim [From Bactrim] AdvReac Confusion/n Verified 03/08/24 09:59 ausea/vomit ing Physical Examination The patient is a 78-year-old female in no acute distress. She is alert and oriented 3. The splint was removed today. Exam of the right hand reveals swelling to the dorsal wrist. No deformity noted. There is also swelling to the right CMC joint with mild tenderness. There is pain to palpation to the wrist joint and along the 3rd metacarpal. There is pain with movement of the right middle finger. Wrist ROM not tested today. No joint instability is noted. Neurological exam is normal. There are no sensory deficits. Deep tendon reflexes are within normal limits. Intrinsic size and strength are normal. Circulation of the arm is within normal limits. There is a good radial pulse, good color and warmth in the hand and good cap refill. Results X-rays of the right wrist reveals no acute fracture or dislocation. 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 - Labs Labs: Abnormal Lab Results - Last 24 Hours (Table) 03/08/24 Range/Units 15:01 Sodium 136 L (137-145) mmol/L BUN 19 H (7-17) mg/dL AST 39 H (14-36) U/L H & H 03/08/24 Range/Units 15:01 Hgb 12.9 (11.4-16.0) gm/dL Hct 39.7 (34.0-46.0) % Result Diagrams: 03/08/24 15:01 03/08/24 15:01 Assessment and Plan (1) Contusion of right hand Current Visit: Yes Status: Acute Code(s): S60.221A - CONTUSION OF RIGHT HAND, INITIAL ENCOUNTER SNOMED Code(s): 80621376119766224 (2) Right wrist sprain Current Visit: Yes Status: Acute Code(s): S63.501A - UNSPECIFIED SPRAIN OF RIGHT WRIST, INITIAL ENCOUNTER SNOMED Code(s): 30952861031050062 Plan: The clinical and x-ray findings were discussed with the patient. The case was discussed at length with Dr. Bhatti. A new volar splint was applied today. She was encouraged to ice and elevate the right wrist as much as possible and work on gentle range of motion of her fingers. The patient is orthopedically stable for discharge home today and she will follow up in our office in 1 week.
[2024-03-09] MEDS ORDERED: KETOROLAC 15 MG/ML 1 ML VIAL IVP PRN (16:18)
[2024-03-09] MEDS ORDERED: LIDOCAINE 4% PATCH TOPICAL SCH (16:30)
[2024-03-09] MEDS: LIDOCAINE 4% PATCH TOPICAL SCH (16:46)
--- NOTE | 2024-03-09 20:56 | P.PN ---
Subjective Progress Note Date: 03/09/24 78-year-old female came in after a fall and patient had a mechanical fall while she was carrying her groceries patient denied loss of consciousness is also complaining of mild lightheadedness. Pain in the chest when she takes deep breath and deep cage area. Patient has swelling in the right arm for which she has a cast although there is no fracture. Although workup including chest x-ray face CT cervical spine head CT and wrist x-ray are all negative patient also has a small hematoma in the chin area. 03/09/2024 Patient is evaluated today in follow up on the medical floor. Patient reports improvement in the pain and numbness of the right had which was rewrapped with splint by orthopedics. No evidence for acute fracture at this time. Patient also reports being able to take a deeper breath and has been working on the incentive spirometer. Repeat brain CT reveals no focal neurological deficits or hemorrhage. Patients headache has significantly improved as well. Was able to get about 5 hours of sleep after taking xanax last night. As the right wrist is affected patient is awaiting family to arrive from out of state to assist with discharge home. Patient reports episodes of "jerking" with no loss of consciousness. Review of Systems PHYSICAL EXAMINATION: GENERAL: The patient is alert and oriented x3, not in any acute distress. Well developed, well nourished. HEENT: Pupils are round and equally reacting to light. EOMI. No scleral icterus. No conjunctival pallor. Normocephalic, atraumatic. No pharyngeal erythema. No thyromegaly. CARDIOVASCULAR: S1 and S2 present. No murmurs, rubs, or gallops. PULMONARY: Chest is clear to auscultation, no wheezing or crackles. ABDOMEN: Soft, nontender, nondistended, normoactive bowel sounds. No palpable organomegaly. MUSCULOSKELETAL: No joint swelling or deformity. EXTREMITIES: No cyanosis, clubbing, or pedal edema. Right hand has a cast NEUROLOGICAL: Gross neurological examination did not reveal any focal deficits. SKIN: Bruises and hematoma as mentioned above Assessment and plan Assessment -Mechanical fall patient denies any syncopal episode, -Myoclonic jerking which can be because of multiple medications contributing to myoclonus and will recommend to stop the tramadol as this can lower seizure threshold; patient is also on bupropion and flexeril. -History of PE in the past for which patient is on anticoagulation which will be resumed -Hx of sarcoidosis with prior right lower lobectomy -Hypertension, controlled DVT prophylaxis: On anticoagulation Full Code Plan Orthopedics following, splint was rewrapped with plans to follow up in the office for a second xray Continue with pain management norco Q4h and recommend to stop the tramadol as mentioned above patient having myoclonus and will use tylenol and IV toradol instead. Lidocaine patch in place Continue with incentive spirometer 10 x an hour while awake. The impression and plan of care has been dictated by Winnie Desai Nurse Practitioner as directed. Dr. Joaquin MD I have performed a history and physical examination and medical decision making of this patient, discussed the same with the dictator, and agree with the di ctators assessment and plan as written, documented as a scribe. Based on total visit time, I have performed more than 50% of this visit. Objective - Vital Signs Vital signs: Vital Signs Temp 98.4 F 03/09/24 20:09 Pulse 63 03/09/24 20:09 Resp 17 03/09/24 20:09 BP 152/86 03/09/24 20:09 Pulse Ox 95 03/09/24 14:55 FiO2 Intake & Output 03/09/24 03/09/24 03/10/24 06:59 18:59 06:59 Intake Total 240 118 Balance 240 118 Intake: Oral 240 118 Other: Voiding Method Toilet # Voids 1 3 - Labs CBC & Chem 7: 03/08/24 15:01 03/08/24 15:01 Assessment and Plan Time with Patient: Less than 30
--- NOTE | 2024-03-10 07:57 | P.PN ---
Subjective Progress Note Date: 03/10/24 Principal diagnosis: Right wrist pain The patient is a 78-year-old female who presented to the emergency department yesterday after sustaining a fall at home. She states that she was carrying something out of the freezer and fell. She did hit her head and landed on her right hand. She is on Eliquis. Upon evaluation in the emergency supervisor painting department CT was ordered an x-ray of the right wrist. No bleed or fracture was seen. She was placed in a splint with her fingers included on the right hand. The patient was admitted for further observation and pain control. This morning, patient states her wrist is feeling much better. The splint is comfortable. No new complaints today. Objective - Vital Signs Vital signs: Vital Signs Temp 98.4 F 03/10/24 07:00 Pulse 58 L 03/10/24 07:00 Resp 16 03/10/24 07:00 BP 126/75 03/10/24 07:00 Pulse Ox 95 03/10/24 07:00 FiO2 Intake & Output 03/09/24 03/10/24 03/10/24 18:59 06:59 18:59 Intake Total 118 Balance 118 Intake: Oral 118 Other: Voiding Method Toilet # Voids 3 2 - Exam The patient is a 78-year-old female in no acute distress. She is alert and onel ented 3. Volar splint in place. There is pain with movement of the right middle finger still. Neurological status is intact. Warmth in the hand and good cap refill. - Labs CBC & Chem 7: 03/08/24 15:01 03/08/24 15:01 Assessment and Plan (1) Contusion of right hand Current Visit: Yes Status: Acute Code(s): S60.221A - CONTUSION OF RIGHT HAND, INITIAL ENCOUNTER SNOMED Code(s): 54382716757610209 (2) Right wrist sprain Current Visit: Yes Status: Acute Code(s): S63.501A - UNSPECIFIED SPRAIN OF RIGHT WRIST, INITIAL ENCOUNTER SNOMED Code(s): 18370100747412209 Plan: The clinical and x-ray findings were discussed with the patient. The case was discussed at length with Dr. Bhatti. She was encouraged to ice and elevate the right wrist as much as possible and work on gentle range of motion of her fingers. The patient is orthopedically stable for discharge home today and she will follow up in our office in 1 week. Script in chart for a carpal tunnel wrist brace that she may transition into it when she obtains it from a DME facility.
[2024-03-10 11:35] LABS: Basophils # (A) 0.05 X 10*3/uL (0.00-0.10); Basophils % (A) 0.7 %; Eosinophils # (A) 0.15 X 10*3/uL (0.04-0.35); HCT 39.9 % (37.2-46.3); HGB 12.9 g/dL (12.0-15.0); Lymphocytes # (A) 2.06 X 10*3/uL (0.90-5.00); Lymphocytes % (A) 27.1 %; MCH 30.9 pg (27.0-32.0); MCHC 32.3 g/dL (32.0-37.0); MCV 95.7 FL (80.0-97.0); Mean Platelet Volume 11.1 FL (9.5-12.2); Monocytes # (A) 0.84 X 10*3/uL (0.20-1.00); Monocytes % (A) 11.1 %; NRBC Per 100 WBC 0 X 10*3/uL (0.00-0.01); Neutrophils # (A) 4.48 X 10*3/uL (1.80-7.70); Neutrophils % (A) 58.8 %; Platelet Count 288 X 10*3/uL (140-440); RBC 4.17 X 10*6/uL (4.10-5.20); RDW 12.7 % (11.5-14.5)
[2024-03-10 11:41] LABS: BUN/Creat Ratio 18.86 Ratio (12.00-20.00); Blood Urea Nitrogen 13.2 mg/dL (9.0-27.0); Calcium 9.1 mg/dL (8.7-10.3); Carbon Dioxide 23.4 mmol/L (21.6-31.8); Chloride 109 mmol/L (96-109); Glucose 103 mg/dL (70-110); Potassium 4.1 mmol/L (3.5-5.5); Sodium 145 mmol/L (135-145)
[2024-03-10 15:04] VITALS: BP 108/67; PULSE 58; RESP 17; TEMP 97.5
--- NOTE | 2024-03-10 16:04 | XR ---
EXAMINATION TYPE: XR ribs bilat w pa chest xray 9 views, XR sternum 3V DATE OF EXAM: 03/10/2024 COMPARISON: Chest 03/08/2024 HISTORY: 78-year-old female with fall and pain FINDINGS: Chest and RIBS: Heart mildly enlarged. Mild atherosclerotic arch calcifications. Suture material projecting at the ri ght chest wall. Mild interstitial prominence is unchanged. Mild patchy density at the right base, pro bably atelectasis. Cholecystectomy clips. Calcified subcarinal and bilateral hilar lymph nodes. No displaced rib fracture identified on either side. Sternum: The sternal clavicular joints appear intact. Extensive overlapping structures limiting the AP view of the sternum. On the lateral view, no depressed or angulated sternal fracture is seen. IMPRESSION: Chest and ribs: 1. Mild cardiomegaly. Mild patchy atelectasis versus early infiltrate at the right base. Correlate wi th symptoms. No other acute process seen. Evidence of prior granulomatous disease. 2. No displaced rib fracture identified on either side. Sternum: 3. No depressed or angulated sternal fracture identified on the lateral view.
[2024-03-10] MEDS: LIDOCAINE 4% PATCH TOPICAL SCH (17:41)
== END 2024-03-10 20:03 | disposition home health service (06) ==
LOC: EC 22:33 → 6NMEDSUR 03-08 02:55 → 1SOBS 03-08 07:09 → 6NMEDSUR 03-08 10:41
PROVIDERS: ADMIT Hospitalist; ATTEND Hospitalist
DX: S62.302A Unspecified fracture of third metacarpal bone, right hand, initial encounter for closed fracture (principal); S60.221A Contusion of right hand, initial encounter; S63.501A Unspecified sprain of right wrist, initial encounter; S00.83XA Contusion of other part of head, initial encounter; W19.XXXA Unspecified fall, initial encounter; Y92.009 Unspecified place in unspecified non-institutional (private) residence as the place of occurrence of the external cause; I10 Essential (primary) hypertension; I48.91 Unspecified atrial fibrillation; G25.3 Myoclonus; D86.9 Sarcoidosis, unspecified; Z86.711 Personal history of pulmonary embolism; Z86.718 Personal history of other venous thrombosis and embolism; Z90.2 Acquired absence of lung [part of]; Z79.01 Long term (current) use of anticoagulants; Z79.899 Other long term (current) drug therapy
CPT/HCPCS: 80053; 80048; 85025 ×2; 71111; 71120; 73110; 71046; 72125; 70486; 70450 ×2; G0378 ×3; 99285

== ENCOUNTER → 2025-02-20 | Outpatient (CLI) | payer MEDICARE ==
[2025-02-20 15:37] VITALS: BP 136/78; PULSE 65; RESP 16; TEMP 98; BMI 39.0
--- NOTE | 2025-02-20 15:58 | P.HPBAR ---
Bariatric H&P - History & Physicial H&P Date: 02/20/25 History & Physicial: Visit/CC: Initial Patient initial contact: Initial weight: 153.768 kg Initial weight in pounds: 339.00 Height: 5 ft 1.5 in Initial BMI: 63.0 Last weight: Current weight: 95.254 kg Current weight in pounds: 210.00 Current BMI: 39.0 [place] body weight (based on NIH guidelines): 48.95 kg Excess body weight loss: 55.8% The patient is a 79 year-old F who presents for Bariatric Assessment. Highest weight 339 pounds. She is 212 pounds. She has dysphagia. She was lowest of 199 pounds. She needs dilation. Needs blood work. She needs labs. Then will need food journal. Has presbyesophagus and needs rigid and balloon Past Medical History Past Medical History: Hypertension, Pulmonary Embolus (PE) Additional Past Medical History / Comment(s): HAD AN EPISODE OF IRREG. HEART RATE THAT WAS ATRIAL AND VENTRICULAR-HAS NOT HAPPENED AGAIN. SARCOIDOSIS History of Any Multi-Drug Resistant Organisms: None Reported Past Surgical History: Appendectomy, Bariatric Surgery, Cholecystectomy, Heart Catheterization, Orthopedic Surgery, Tonsillectomy Additional Past Surgical History / Comment(s): thoracotomy for a granuloma REMOVED RIGHT LOWER LOBE AND 1/2 OF 2ND LOBE REMOVED 1965-ENDED UP BEING SARCOIDOSIS, oopherectomy on one side ruptured cyst, uterine reconstruction due to fibroids, trapezius repair, LT JARQUIN TUMOR REMOVED-BENIGN, RT BUNIONECTOMY, right shoulder surgery Past Anesthesia/Blood Transfusion Reactions: No Reported Reaction Past Psychological History: No Psychological Hx Reported Additional Psychological History / Comment(s): September 2021, situational anxiety at times Smoking Status: Never smoker Past Alcohol Use History: None Reported Past Drug Use History: None Reported - Past Family History Mother Family Medical History: No Reported History Father Family Medical History: Cancer Additional Family Medical History / Comment(s): prostate Sister(s) Family Medical History: Cancer Additional Family Medical History / Comment(s): thought she had cancer due to major swelling on her side but ended up being benign Daughter(s) Family Medical History: Cancer Additional Family Medical History / Comment(s): uterine Surgical - Exam Vital Signs Temp Pulse Resp BP 98 F 65 16 136/78 02/20/25 15:34 02/20/25 15:34 02/20/25 15:34 02/20/25 15:34 Bariatric Checklist Checklist: Plan: Checklist: EGD: 1. Hiatal hernia: 2. H. Pylori: HgbA1c: Vitamin D: Smoking: Former smoker Primary care physician referral: Psychiatry clearance: Cardiology clearance: Sleep study: Diet journal: VTE risk score: VTE risk level: Rehab needs at discharge:
[2025-02-20 17:12] LABS: INR 1.1 (<1.2); Partial Thromboplastin Time 26.0 sec (22.0-30.0); Prothrombin Time 11.7 sec (10.0-12.5)
[2025-02-20 19:08] LABS: HCT 40.2 % (37.2-46.3); HGB 13.3 g/dL (12.0-15.0); MCH 31.7 pg (27.0-32.0); MCHC 33.1 g/dL (32.0-37.0); MCV 95.9 FL (80.0-97.0); NRBC Per 100 WBC 0 X 10*3/uL (0.00-0.01); Platelet Count 284 X 10*3/uL (140-440); RBC 4.19 X 10*6/uL (4.10-5.20); RDW 13.0 % (11.5-14.5); WBC 8.03 X 10*3/uL (4.50-10.00)
[2025-02-20 19:35] LABS: ALT 17 U/L (8-44); AST 22 U/L (13-35); Albumin 4.2 g/dL (3.8-4.9); Albumin/Globulin Ratio 1.83 Ratio (1.60-3.17); Alkaline Phosphatase 137 U/L (41-126); Anion Gap 12.20 mmol/L (4.00-12.00); BUN/Creat Ratio 22.14 Ratio (12.00-20.00); Blood Urea Nitrogen 15.5 mg/dL (9.0-27.0); Calcium 9.2 mg/dL (8.7-10.3); Carbon Dioxide 21.8 mmol/L (21.6-31.8); Chloride 106 mmol/L (96-109); Cholesterol 175.00 mg/dL (0.00-200.00); Ferritin 51.5 ng/mL (10.0-291.0); Globulin 2.3 g/dL (1.6-3.3); Glucose 90 mg/dL (70-110); HDL Cholesterol 56.70 mg/dL (40.00-60.00); Iron 128 UG/DL (50-170); LDL Cholesterol,Calculated 99.2 mg/dL (0.0-131.0); Magnesium 2.0 mg/dL (1.5-2.4); Potassium 4.1 mmol/L (3.5-5.5); Sodium 140 mmol/L (135-145); Total Iron Binding Capacity 354 UG/DL (228-460); Total Protein 6.5 g/dL (6.2-8.2); Triglycerides 95.70 mg/dL (0.00-149.00); VLDL Calculation 19.14 mg/dL (5.00-40.00)
[2025-02-20 20:40] LABS: Vitamin B12 1963.0 pg/mL (200.0-944.0)
[2025-02-20 21:45] LABS: Prealbumin 15.9 mg/dL (18.0-42.0)
[2025-02-21 12:53] LABS: Zinc, Serum 70 ug/dL (60-130)
[2025-02-22 05:59] LABS: Vit B1(Thiamine) 150 ug/L (38-122)
== END ==
LOC: BARWHC3 14:49
PROVIDERS: ATTEND Surgery Plastic and Reconstructive Surgery
DX: E66.01 Morbid (severe) obesity due to excess calories (principal); E89.1 Postprocedural hypoinsulinemia; D50.8 Other iron deficiency anemias; E44.0 Moderate protein-calorie malnutrition; E45 Retarded development following protein-calorie malnutrition; N19 Unspecified kidney failure; E55.9 Vitamin D deficiency, unspecified; K91.2 Postsurgical malabsorption, not elsewhere classified; K74.1 Hepatic sclerosis; T56.894A Toxic effect of other metals, undetermined, initial encounter; Z68.39 Body mass index [BMI] 39.0-39.9, adult; Z88.2 Allergy status to sulfonamides; Z88.1 Allergy status to other antibiotic agents; Z88.5 Allergy status to narcotic agent; Z91.041 Radiographic dye allergy status; Z87.891 Personal history of nicotine dependence
CPT/HCPCS: 80053; 80061; 82306; 82525; 82607; 82728; 82746; 83036; 83540; 83550; 83735; 83970; 84100; 84134; 84255; 84425; 84443; 84590; 84630; 85027; 85610; 85730; 93005; 99202

== ENCOUNTER → 2025-02-21 | Outpatient (CLI) | payer MEDICARE ==
[2025-02-21 19:27] LABS: Urine Alcohol Negative (Negative); Urine Barbiturate Negative (Negative)
== END | disposition home or self-care (01) ==
LOC: LABWHC1 15:32
PROVIDERS: ATTEND Surgery Plastic and Reconstructive Surgery
DX: D50.8 Other iron deficiency anemias (principal); K90.89 Other intestinal malabsorption; K90.9 Intestinal malabsorption, unspecified; E55.9 Vitamin D deficiency, unspecified; K74.1 Hepatic sclerosis; N19 Unspecified kidney failure; T56.894A Toxic effect of other metals, undetermined, initial encounter; K50.90 Crohn's disease, unspecified, without complications
CPT/HCPCS: 36415; 80306; 80323; 93005